=== PATIENT | female | born 1960 | race Caucasian/White ===

== ENCOUNTER → 2017-02-14 | Outpatient (CLI) | payer BC | LOC: HEART 5 12-31 08:00 | DX: R06.00 Dyspnea, unspecified (principal); R53.83 Other fatigue; R73.9 Hyperglycemia, unspecified; E78.5 Hyperlipidemia, unspecified | CPT/HCPCS: 78452; 93306; A9502; J2785 ==

== ENCOUNTER → 2021-03-06 | Outpatient (CLI) | payer BC, OTHER | LOC: KOH-I 08:54 | DX: R10.11 Right upper quadrant pain (principal); R07.9 Chest pain, unspecified; R13.10 Dysphagia, unspecified; K76.0 Fatty (change of) liver, not elsewhere classified; N28.1 Cyst of kidney, acquired | CPT/HCPCS: 76705 ==

== ENCOUNTER → 2021-03-14 | Outpatient (CLI) | payer BC, OTHER | LOC: HEART 5 13:30 | DX: R00.2 Palpitations (principal) ==

== ENCOUNTER → 2021-03-16 | Outpatient (CLI) | payer BC, OTHER | LOC: HEART 5 13:57 | DX: R07.9 Chest pain, unspecified (principal); R00.2 Palpitations; R06.02 Shortness of breath; M54.6 Pain in thoracic spine; M54.2 Cervicalgia; M47.812 Spondylosis without myelopathy or radiculopathy, cervical region; M47.814 Spondylosis without myelopathy or radiculopathy, thoracic region | CPT/HCPCS: 71046; 72040; 72070; 93306 ==

== ENCOUNTER → 2021-03-28 | Outpatient (CLI) | payer BC, OTHER | LOC: MAMO 03-27 14:30 | DX: Z12.31 Encounter for screening mammogram for malignant neoplasm of breast (principal) | CPT/HCPCS: 77063; 77067 ==

== ENCOUNTER → 2021-06-01 | Outpatient (CLI) | payer BC | LOC: NM 04-11 09:00 | DX: R10.11 Right upper quadrant pain (principal); R10.13 Epigastric pain; R10.10 Upper abdominal pain, unspecified; R11.0 Nausea; R93.2 Abnormal findings on diagnostic imaging of liver and biliary tract | CPT/HCPCS: 78227; A9537; J2805 ==

== ENCOUNTER → 2021-06-12 | Outpatient (CLI) | payer BC | LOC: MAMO 06-09 11:00 | DX: R92.8 Other abnormal and inconclusive findings on diagnostic imaging of breast (principal) | CPT/HCPCS: 76641-RT; 77065; G0279 ==

== ENCOUNTER → 2022-04-24 | Outpatient (CLI) | payer BC | LOC: EXRD 13:00 | DX: R13.10 Dysphagia, unspecified (principal) | CPT/HCPCS: 76536 ==